=== PATIENT | female | born 1995 ===

== ENCOUNTER 2018-12-15 07:00 | Day surgery (SDC) | payer OTHER ==
[~2018-12-15] VITALS: Ht 165.1 cm; Wt 68.0 kg
[~2018-12-15 07:00] MED LIST: SPRINTEC PO
[2018-12-15] MEDS ORDERED: SPRINTEC 28 DA1 EACH PO (09:09)
== END 2018-12-15 13:00 | disposition home or self-care (01) ==
LOC: CIR.AMB 07:00 → EDSTATUS 07:30 → SURH 07:30 → CIR.AMB 13:00 → O/R 14:55
DX: D27.1 Benign neoplasm of left ovary (principal); R59.0 Localized enlarged lymph nodes